=== PATIENT | female | born 1955 | race Caucasian/White ===

== ENCOUNTER 2019-04-06 08:37 | Emergency (ER) | payer MEDICARE ==
[~2019-04-06] VITALS: Ht 172.7 cm; Wt 59.0 kg
[~2019-04-06 08:37] MED LIST: ACYCLOVIR800 MG PO; AUGMENTIN 875-1 EACH PO; CENTRUM SILVER1 EACH PO; CITRACAL + D M1 EACH PO; HYDROCODON-ACE1 EA11 PO; HYDROCODON-ACE1 EAC8 PO; IMITREX100 MG PO; MELATONIN10 M2 PO; TRAZODONE HCL50 MG PO; VITAMIN B-12250 MCG PO; VITAMIN D35000 UNI1 PO
--- NOTE | 2019-04-08 10:56 | EKG ---
[facility] [address] [facility] [place] [address] Signed Normal sinus rhythm Normal ECG No previous ECGs available Confirmed by SRINI PRECIADO MD ([id number] on 04/08/2019 10:55:57 AM Electronically Signed By: SRINI PRECIADO MD 04/08/19 1056 PATIENT NAME: ROSAURA TELLO Electrocardiogram DATE OF : 51 PHYSICIAN: SRINI PRECIADO MD REPORT #: [id number] REPORT IS CONFIDENTIAL AND NOT TO BE RELEASED WITHOUT AUTHORIZATION
== END 2019-04-06 11:25 | disposition home or self-care (01) ==
LOC: ED 08:37
DX: Z00.00 Encounter for general adult medical examination without abnormal findings (principal); Z79.899 Other long term (current) drug therapy
CPT/HCPCS: 71045; 80053; 84443; 84484; 85025; 93005; 93010; 96360; 99284-25; J7030